=== PATIENT | male | born 1980 | race Caucasian/White ===

== ENCOUNTER 2019-02-28 15:26 | Emergency (ER) | payer MEDICAID ==
[~2019-02-28] VITALS: Ht 177.8 cm; Wt 95.3 kg
[2019-02-28 15:43] VITALS: BP 140/78
--- NOTE | 2019-02-28 15:52 | NUR ---
FLU SWAB COLLECTED. TRIAGE COMPLETE. RETURNED TO [facility] AWAITNG BED IN ED.
--- NOTE | 2019-02-28 16:55 | NUR ---
38 Y/O M C/O COUGH, FEVER AT HOME- NO FEVER TODAY IN THE ED, CHILLS. PT STATED HE VOMITTED TODAY FROM COUGHING. PT LUNG SOUNDS CLEAR THROUGHOUT, COUGH PRODUCTIVE. PT STATES HE HAS INGA TAKING OVER THE COUNTER MEDICATION FOR COUGH, HAS NOT HELPED. ARJUN
--- NOTE | 2019-02-28 16:56 | NUR ---
PT TO X-RAY BY WHEELCHAIR.
[2019-02-28] MEDS ORDERED: ALBUTEROL 0.083% 2.5 MG/3 ML NEBU INH ONE (17:20)
--- NOTE | 2019-02-28 17:20 | NUR ---
RAY MCKINLEY AT BEDSIDE EXAMINING PATIENT.
--- NOTE | 2019-02-28 17:26 | NUR ---
RT AT BEDSIDE ADMINISTERING BREATHING TREATMENT WITH PATIENT.
[2019-02-28 17:58] VITALS: BP 140/78
--- NOTE | 2019-02-28 17:59 | NUR ---
Patient discharged with v/s stable. Written and verbal after care instructions given and explained. Patient alert, oriented and verbalized understanding of instructions. Ambulatory with steady gait. All questions addressed prior to discharge. ID band removed. Patient advised to follow up with PMD. Rx of PROMETHAZINE, IBUPROFEN, AZITHROMCIN, MEDROL; given. Patient educated on indication of medication including possible reaction and side effects. Opportunity to ask questions provided and answered.
== END 2019-02-28 17:59 | disposition home or self-care (01) ==
LOC: MED 15:26
DX: J20.9 Acute bronchitis, unspecified (principal); J98.11 Atelectasis; R03.0 Elevated blood-pressure reading, without diagnosis of hypertension
CPT/HCPCS: 71045; 87804; 94640; 99284; J7613